=== PATIENT | male | born 1955 ===

== ENCOUNTER → 2017-12-05 | Outpatient (CLI) | payer OTHER ==
--- NOTE | 2017-12-05 11:13 | RADIOLOGY REPORT (SQ) ---
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 TECHNIQUE: Dynamic and static pisano-scale images acquired of the thyroid gland. Selected additional c olor/power Doppler images recorded. All images stored to PACS. Ultrasound of the right and left lat eral neck was also performed. LIMITATIONS: None. FINDINGS: RIGHT LOBE: Normal size, 4 x 1.8 x 1.6 cm in size. Homogeneous echotexture. Multiple sma ll less than 5 mm colloid cysts are present in the right midpole gland. LEFT LOBE: Normal size, 5.5 x 2.3 x 1.5 cm. Homogeneous echotexture. No cystic or solid masses. ISTHMUS: Normal size. Homogeneous echotexture. No cystic or solid masses. OTHER: Ultrasound of the right and left post row lateral neck along the area of concern indicated by the patient. No cervical adenopathy. IMPRESSION: No bulky cervical adenopathy identified at ultrasound Normal size thyroid gland with small colloid cysts in the right midpole gland TECHNICAL DOCUMENTATION: JOB ID: [id number] [employer]- All Rights Reserved
== END ==
LOC: RAD 09:16
PROVIDERS: ATTEND Surgery
DX: E04.1 Nontoxic single thyroid nodule (principal)
CPT/HCPCS: 76536